=== PATIENT | male | born 1995 | race Caucasian/White ===

== ENCOUNTER 2019-10-13 23:56 | Emergency (ER) | payer OTHER ==
[2019-10-14] VITALS: BP 136/94; PULSE 72; RESP 18; TEMP 98
[2019-10-14] MEDS ORDERED: PENICILLIN VK 500MG STARTER 4 TAB BTL PO STA (00:10)
[2019-10-14] MEDS ORDERED: ACET/COD 300 MG/30 MG STARTER PACK 6 TAB BTL PO STA (00:10)
[2019-10-14] MEDS ORDERED: KETOROLAC 30 MG/ML 1 ML VIAL IM STA (00:10)
--- NOTE | 2019-10-14 00:12 | ED ---
General Adult HPI - General Chief complaint: Dental/Oral Stated complaint: Dental Pain Time Seen by Provider: 10/14/19 00:05 Source: patient Mode of arrival: ambulatory Limitations: no limitations - History of Present Illness Initial comments: 24-year-old male patient presents to the emergency department today for evaluation of left upper dental pain. Patient states the pain has been present for the last couple of days. States that he had a broken tooth but it never really bothered him. Denies any facial swelling, trismus, or difficulty swallowing. Denies any nausea or vomiting. Denies fever or chills. States he took Tylenol for pain which did not help. Patient does have dental insurance. Patient denies any recent rash, shortness breath, chest pain, abdominal pain, nausea, constipation, back pain, numbness, tingling, dizziness, weakness, hematuria, dysuria, urinary urgency, urinary frequency, headache, visual changes, or any other complaints. - Related Data Previous Rx's Medication Instructions Recorded Ibuprofen [Motrin] 600 mg PO Q8HR PRN #30 tab 10/14/19 Penicillin V Potassium [Pen Vee K] 500 mg PO Q6H #40 tablet 10/14/19 Allergies Allergy/AdvReac Type Severity Reaction Status Date / Time Sulfa (Sulfonamide Allergy Rash/Hives Verified 10/14/19 00:00 Antibiotics) Review of Systems ROS Statement: Those systems with pertinent positive or pertinent negative responses have been documented in the HPI. ROS Other: All systems not noted in ROS Statement are negative. Past Medical History Past Medical History: No Reported History History of Any Multi-Drug Resistant Organisms: None Reported Past Surgical History: No Surgical Hx Reported Smoking Status: Current every day smoker Past Alcohol Use History: None Reported Past Drug Use History: Marijuana General Exam Limitations: no limitations General appearance: alert, in no apparent distress, other (This is a well- developed, well-nourished adult male patient in no acute distress. Vital signs upon presentation are temperature 98.0F, pulse 72, respirations 18, blood pressure 136/94, pulse ox 100% on room air.) Eye exam: Present: normal appearance, PERRL, EOMI. Absent: scleral icterus, conjunctival injection, periorbital swelling ENT exam: Present: other (Patient has broken tooth to the left upper dentition. No surrounding erythema, no evidence for abscess.) Respiratory exam: Present: normal lung sounds bilaterally. Absent: respiratory distress, wheezes, rales, rhonchi, stridor Cardiovascular Exam: Present: regular rate, normal rhythm, normal heart sounds. Absent: systolic murmur, diastolic murmur, rubs, gallop, clicks GI/Abdominal exam: Present: soft, normal bowel sounds. Absent: distended, tenderness, guarding, rebound, rigid Neurological exam: Present: alert, oriented X3, CN II-XII intact Psychiatric exam: Present: normal affect, normal mood Skin exam: Present: warm, dry, intact, normal color. Absent: rash Course Vital Signs 10/13/19 23:57 Temperature 98.0 F Pulse Rate 72 Respiratory 18 Rate Blood Pressure 136/94 O2 Sat by Pulse 100 Oximetry Medical Decision Making - Medical Decision Making 24-year-old male patient presents to the emergency department today for evaluation of dental pain. Physical examination did reveal broken tooth, no surrounding gingival erythema, hyperplasia, evidence for abscess. There is concern for beginning infection as the tooth has been broken for quite some time without pain. We will start pen VK. He is given pain medication. We discharged pop with dentistry as soon as possible. Return parameters were discussed in detail. He verbalizes understanding and agrees with this plan. Disposition Clinical Impression: Pain, dental Disposition: HOME SELF-CARE Condition: Good Instructions (If sedation given, give patient instructions): Toothache (ED) Additional Instructions: Complete antibiotic prescription and full. Follow-up with dentistry for recheck as soon as possible. Return to the emergency department immediately for any new, worsening, or concerning symptoms. Prescriptions: Ibuprofen [Motrin] 600 mg PO Q8HR PRN #30 tab PRN Reason: Pain Penicillin V Potassium [Pen Vee K] 500 mg PO Q6H #40 tablet Is patient prescribed a controlled substance at d/c from ED?: No Referrals: None,Stated [Primary Care Provider] - 1-2 days Time of Disposition: 00:12
== END 2019-10-14 00:42 | disposition home or self-care (01) ==
LOC: EC 23:56
DX: S02.5XXA Fracture of tooth (traumatic), initial encounter for closed fracture (principal); F17.200 Nicotine dependence, unspecified, uncomplicated; Z88.2 Allergy status to sulfonamides; X58.XXXA Exposure to other specified factors, initial encounter
CPT/HCPCS: 99282; 96372; J1885

== ENCOUNTER 2019-10-15 01:43 | Emergency (ER) | payer OTHER ==
[2019-10-15] MEDS ORDERED: ONDANSETRON 4 MG/2 ML VIAL IVP STA ×2 (01:57→04:12)
[2019-10-15] MEDS ORDERED: SODIUM CHLORIDE 0.9% 1,000 ML IV STA (01:57)
--- NOTE | 2019-10-15 02:03 | ED ---
General Adult HPI - General Chief complaint: Nausea/Vomiting/Diarrhea Stated complaint: Vomiting Time Seen by Provider: 10/15/19 01:51 Source: patient Mode of arrival: ambulatory Limitations: no limitations - History of Present Illness Initial comments: Patient is a 24-year-old male presenting to the emergency department with a chief complaint of nausea or vomiting. Patient reports she developed sudden onset of nausea or vomiting 1.5 hours prior to ED arrival. Patient reports is also developed right upper quadrant abdominal pain that radiates to the left upper quadrant. Patient denies any diarrhea or constipation. Patient denies anyfevers or chills. Patient reports the pain is not related to by mouth intake. Patient denies any night sweats or chills. Patient reports the pain is sharp in nature - Related Data Previous Rx's Medication Instructions Recorded Ibuprofen [Motrin] 600 mg PO Q8HR PRN #30 tab 10/14/19 Penicillin V Potassium [Pen Vee K] 500 mg PO Q6H #40 tablet 10/14/19 Ondansetron Odt [Zofran Odt] 4 mg PO Q8HR PRN #10 tab 10/15/19 Allergies Allergy/AdvReac Type Severity Reaction Status Date / Time Sulfa (Sulfonamide Allergy Rash/Hives Verified 10/15/19 01:49 Antibiotics) Review of Systems ROS Statement: Those systems with pertinent positive or pertinent negative responses have been documented in the HPI. ROS Other: All systems not noted in ROS Statement are negative. Past Medical History Past Medical History: No Reported History History of Any Multi-Drug Resistant Organisms: None Reported Past Surgical History: No Surgical Hx Reported Past Psychological History: Depression Smoking Status: Current every day smoker Past Alcohol Use History: Occasional Past Drug Use History: Marijuana General Exam Limitations: no limitations General appearance: alert, in no apparent distress Head exam: Present: atraumatic, normocephalic, normal inspection Eye exam: Present: normal appearance Pupils: Present: normal accommodation ENT exam: Present: normal exam, normal oropharynx, mucous membranes moist, TM's normal bilaterally, normal external ear exam Neck exam: Present: normal inspection, full ROM Respiratory exam: Present: normal lung sounds bilaterally Cardiovascular Exam: Present: regular rate, normal rhythm, normal heart sounds GI/Abdominal exam: Present: soft, tenderness (Right upper quadrant. Positive Claudio sign. Negative McBurney point tenders, negative Rovsing, negative obturator, negative psoas), normal bowel sounds. Absent: distended, guarding, rebound, rigid, bruit, pulsatile mass, hernia Extremities exam: Present: normal inspection, full ROM Back exam: Present: normal inspection, full ROM Neurological exam: Present: alert, oriented X3 Psychiatric exam: Present: normal affect, normal mood Skin exam: Present: warm, dry, intact, normal color Course Vital Signs 10/15/19 10/15/19 01:47 02:45 Temperature 97.8 F 98 F Pulse Rate 89 80 Respiratory 20 18 Rate Blood Pressure 144/90 136/74 O2 Sat by Pulse 98 98 Oximetry Medical Decision Making - Medical Decision Making Patient is a 24-year-old male presenting to emergency Department with a chief complaint of nausea or vomiting. Patient was given fluids, antiemetics, Protonix and Bentyl. Physical examination is indicative of right upper quadrant tenderness with positive Claudio sign. On reevaluation patient reports improvement in his symptoms.right upper quadrant ultrasound is indicative of gallbladder distention but otherwise no signs of stones, gallbladder thickening or surrounding fluid. CBC and CMP are unremarkable. Patient does not appear jaundiced. Patient advised to follow with primary care. Strict return parameters were thoroughly discussed with patient was understanding and agreeable. Patient was to take prescribed medication as directed. Patient advised to drink fluids. Case discussed with physician. - Lab Data Result diagrams: 10/15/19 02:27 10/15/19 02:27 Lab Results 10/15/19 10/15/19 Range/Units 02:27 02:27 WBC 9.3 (3.8-10.6) k/uL RBC 4.59 (4.30-5.90) m/uL Hgb 15.0 (13.0-17.5) gm/dL Hct 43.8 (39.0-53.0) % MCV 95.4 (80.0-100.0) fL MCH 32.6 (25.0-35.0) pg MCHC 34.2 (31.0-37.0) g/dL RDW 12.4 (11.5-15.5) % Plt Count 234 (150-450) k/uL Neutrophils % 60 % Lymphocytes % 30 % Monocytes % 6 % Eosinophils % 1 % Basophils % 1 % Neutrophils # 5.5 (1.3-7.7) k/uL Lymphocytes # 2.8 (1.0-4.8) k/uL Monocytes # 0.6 (0-1.0) k/uL Eosinophils # 0.1 (0-0.7) k/uL Basophils # 0.1 (0-0.2) k/uL Sodium 139 (137-145) mmol/L Potassium 3.9 (3.5-5.1) mmol/L Chloride 110 H (98-107) mmol/L Carbon Dioxide 22 (22-30) mmol/L Anion Gap 7 mmol/L BUN 12 (9-20) mg/dL Creatinine 0.77 (0.66-1.25) mg/dL Est GFR (CKD-EPI)AfAm >90 (>60 ml/min/1.73 sqM) Est GFR (CKD-EPI)NonAf >90 (>60 ml/min/1.73 sqM) Glucose 110 H (74-99) mg/dL Calcium 9.5 (8.4-10.2) mg/dL Total Bilirubin 0.6 (0.2-1.3) mg/dL AST 25 (17-59) U/L ALT 21 (21-72) U/L Alkaline Phosphatase 62 (38-126) U/L Total Protein 7.3 (6.3-8.2) g/dL Albumin 4.3 (3.5-5.0) g/dL Amylase 46 (30-110) U/L Lipase 222 (23-300) U/L Disposition Clinical Impression: Nausea & vomiting, Right upper quadrant abdominal pain Disposition: HOME SELF-CARE Condition: Stable Instructions (If sedation given, give patient instructions): Acute Diarrhea (ED) Additional Instructions: Please follow up with primary care. Please return to emergency department if symptoms worsen. Please take prescribed medication as directed. Avoid eating fatty foods. Prescriptions: Ondansetron Odt [Zofran Odt] 4 mg PO Q8HR PRN #10 tab PRN Reason: Nausea Is patient prescribed a controlled substance at d/c from ED?: No Referrals: None,Stated [Primary Care Provider] - 1-2 days Time of Disposition: 04:00
--- NOTE | 2019-10-15 02:34 | US ---
EXAMINATION TYPE: US abdomen limited DATE OF EXAM: 10/15/2019 COMPARISON: NONE CLINICAL HISTORY: RUQ tenderness. RUQ pain x 1 day. Vomiting. EXAM MEASUREMENTS: Liver Length: 15.1 cm Gallbladder Wall: 0.24 cm CBD: 0.59 cm Right Kidney: 11.3 x 5.5 x 4.5 cm Patient gassy Pancreas: Appears wnl, slightly limited due to gas Liver: Appears to be wnl Gallbladder: Appears distended. Measures 10.37 cm in length and 3.64 cm in width. Appears anechoic. Evidence for sonographic Claudio's sign: Patient's area of pain was while scanning over gallbladder . CBD: Measures 0.59 cm, upper limits of normal Right Kidney: No hydronephrosis or masses seen IMPRESSION: There is well distended gallbladder. No gallstones seen. No dilated ducts. No gallbladder wall thickening. There was tenderness over the gallbladder during the exam.
[2019-10-15 02:58] LABS: Basophils # (A) 0.1 k/uL (0-0.2); Basophils % (A) 1 %; Eosinophils # (A) 0.1 k/uL (0-0.7); Eosinophils % (A) 1 %; HCT 43.8 % (39.0-53.0); Lymphocytes # (A) 2.8 k/uL (1.0-4.8); Lymphocytes % (A) 30 %; MCH 32.6 pg (25.0-35.0); MCHC 34.2 g/dL (31.0-37.0); MCV 95.4 fL (80.0-100.0); Mean Platelet Volume 7.3; Monocytes # (A) 0.6 k/uL (0-1.0); Monocytes % (A) 6 %; Neutrophils # (A) 5.5 k/uL (1.3-7.7); Neutrophils % (A) 60 %; Platelet Count 234 k/uL (150-450); RBC 4.59 m/uL (4.30-5.90); RDW 12.4 % (11.5-15.5); WBC 9.3 k/uL (3.8-10.6)
[2019-10-15] MEDS ORDERED: PANTOPRAZOLE 40 MG/10 ML VIAL IVP STA (03:00)
[2019-10-15] MEDS ORDERED: DICYCLOMINE 10 MG CAP PO STA (03:00)
[2019-10-15 03:01] LABS: ALT 21 U/L (21-72); AST 25 U/L (17-59); African American GFR (CKD) >90 (>60 ml/min/1.73 sqM); Albumin 4.3 g/dL (3.5-5.0); Alkaline Phosphatase 62 U/L (38-126); Amylase 46 U/L (30-110); Anion Gap 7 mmol/L; Blood Urea Nitrogen 12 mg/dL (9-20); Calcium 9.5 mg/dL (8.4-10.2); Carbon Dioxide 22 mmol/L (22-30); Chloride 110 mmol/L (98-107); Glucose 110 mg/dL (74-99); Non-African American GFR(CKD) >90 (>60 ml/min/1.73 sqM); Potassium 3.9 mmol/L (3.5-5.1); Sodium 139 mmol/L (137-145); Total Bilirubin 0.6 mg/dL (0.2-1.3); Total Protein 7.3 g/dL (6.3-8.2)
[2019-10-15] MEDS ORDERED: ONDANSETRON 4 MG ODT STARTER PACK 2 TAB BTL PO STA (03:19)
[2019-10-15 03:33] VITALS: BP 136/74; PULSE 80; RESP 18; TEMP 98
[2019-10-15 05:59] LABS: Appearance,Urine Clear (Clear); Bacteria,Urine Rare /hpf; Bilirubin,Urine Negative (Negative); Blood,Urine Small (Negative); Color,Urine Yellow; Glucose,Urine (UA) Negative (Negative); Ketones,Urine 1+ (Negative); Leukocyte Esterase,Urine Trace (Negative); Mucus,Urine Occasional /hpf; Nitrite,Urine Negative (Negative); PH, Urine 6.5 (5.0-8.0); Protein,Urine 1+ (Negative); RBC,Urine 1 /hpf (0-5); Squamous Epithelial Cell,Urine 12 /hpf (0-4); Urobilinogen,Urine <2.0 mg/dL (<2.0)
[2019-10-15 06:03] LABS: Specific Gravity,Urine 1.047 (1.001-1.035)
== END 2019-10-15 04:28 | disposition home or self-care (01) ==
LOC: EC 01:43
DX: R10.11 Right upper quadrant pain (principal); R11.2 Nausea with vomiting, unspecified; F17.200 Nicotine dependence, unspecified, uncomplicated; Z88.2 Allergy status to sulfonamides
CPT/HCPCS: 36415; 80053; 82150; 83690; 85025; 81001; 76705; 99284; 96374; 96375; 96376; 96361; J2405; S0119; C9113

== ENCOUNTER 2020-07-25 00:15 | Emergency (ER) | payer BC, OTHER ==
[2020-07-25 00:22] VITALS: BP 136/81; PULSE 98; RESP 18; TEMP 98.8
[2020-07-25] MEDS ORDERED: HYDROcodone/APAP 7.5-325MG 1 EACH TAB PO ONE (00:31)
[2020-07-25] MEDS ORDERED: KETOROLAC 15 MG/ML 1 ML VIAL IM STA (00:31)
[2020-07-25] MEDS ORDERED: BUPIVACAINE (PF) 0.5% 30 ML VIAL SQ STA (00:31)
--- NOTE | 2020-07-25 00:44 | ED ---
General Adult HPI - General Chief complaint: Dental/Oral Stated complaint: Tooth pain Time Seen by Provider: 07/25/20 00:28 Source: patient Mode of arrival: ambulatory Limitations: no limitations - History of Present Illness Initial comments: 25-year-old male patient presents to the emergency department today for evaluation of right upper dental pain. Patient states he's been having pain to this area for quite some time though it got significantly worse while at work this evening. States pain worsened around 10 PM. Patient states he does have a broken tooth in the area. States he does have a dentist appointment on Monday but he is unable to take the pain. He denies any trismus or difficulty swallowing. Denies nausea or vomiting. Denies any fever or chills. Denies any facial swelling. - Related Data Previous Rx's Medication Instructions Recorded Ibuprofen [Motrin] 600 mg PO Q8HR PRN #30 tab 10/14/19 Penicillin V Potassium [Pen Vee K] 500 mg PO Q6H #40 tablet 10/14/19 Ondansetron Odt [Zofran Odt] 4 mg PO Q8HR PRN #10 tab 10/15/19 Penicillin V Potassium [Pen Vee K] 500 mg PO Q6H #40 tablet 07/25/20 Allergies Allergy/AdvReac Type Severity Reaction Status Date / Time Sulfa (Sulfonamide Allergy Rash/Hives Verified 07/25/20 00:22 Antibiotics) Review of Systems ROS Statement: Those systems with pertinent positive or pertinent negative responses have been documented in the HPI. ROS Other: All systems not noted in ROS Statement are negative. Past Medical History Past Medical History: No Reported History History of Any Multi-Drug Resistant Organisms: None Reported Past Surgical History: No Surgical Hx Reported Past Psychological History: Depression Smoking Status: Current every day smoker Past Alcohol Use History: Occasional Past Drug Use History: Marijuana General Exam Limitations: no limitations General appearance: alert, in no apparent distress, other (This is a well- developed, well-nourished adult male patient in no acute distress. Vital signs upon presentation are temperature 98.8F, pulse 98, respirations 18, blood pressure 136/81, pulse ox 95% on room air.) ENT exam: Present: normal oropharynx, mucous membranes moist, other (Patient has very poor dentition, multiple dental caries, tooth #1 is fractured down to the pulp with exposed nerve. There is mild surrounding erythema. No evidence of drainable abscess to) Neck exam: Present: normal inspection. Absent: tenderness, meningismus, lymphadenopathy Respiratory exam: Present: normal lung sounds bilaterally. Absent: respiratory distress, wheezes, rales, rhonchi, stridor Cardiovascular Exam: Present: regular rate, normal rhythm, normal heart sounds. Absent: systolic murmur, diastolic murmur, rubs, gallop, clicks Neurological exam: Present: alert, oriented X3, CN II-XII intact Psychiatric exam: Present: normal affect, normal mood Skin exam: Present: warm, dry, intact, normal color. Absent: rash Course Vital Signs 07/25/20 00:20 Temperature 98.8 F Pulse Rate 98 Respiratory 18 Rate Blood Pressure 136/81 O2 Sat by Pulse 95 Oximetry Procedures - Nerve Block Consent Obtained: verbal consent Local Anesthetic Used: Marcaine 0.5% Amount of anesthesia used: 3 Side: right Intraoral Nerve Block: superior alveolar Procedure Successful: Yes Complications: none Patient Tolerated Procedure: well, no complications Medical Decision Making - Medical Decision Making 25-year-old male patient presented to the emergency department today for evaluation of right upper dental pain. Physical examination did reveal very poor dentition with multiple dental caries. Tooth #1 was fractured with Exposure. Patient did have mild surrounding erythema with no evidence for drainable abscess. Patient is afebrile. I did perform superior alveolar nerve block which did improve the patient's symptoms. He'll be discharged with Pen- Vee K. He does have a dentist appointment on Monday. He is given prescription for ibuprofen for pain control. Return parameters were discussed in detail. He verbalizes understanding and agrees with this plan. Disposition Clinical Impression: Pain, dental Disposition: HOME SELF-CARE Condition: Good Instructions (If sedation given, give patient instructions): Toothache (ED) Additional Instructions: Complete antibiotic prescription in full. Follow up with dentistry on Monday as you have planned. Take Tylenol Motrin alternating every 6 hours for pain control. Return to the emergency department immediately for any new, worsening, or concerning symptoms. Prescriptions: Penicillin V Potassium [Pen Vee K] 500 mg PO Q6H #40 tablet Is patient prescribed a controlled substance at d/c from ED?: No Referrals: None,Stated [Primary Care Provider] - 1-2 days Time of Disposition: 01:07
[2020-07-25] MEDS ORDERED: PENICILLIN VK 500MG STARTER 4 TAB BTL PO STA (01:07)
[2020-07-25] MEDS ORDERED: ACET/COD 300 MG/30 MG STARTER PACK 6 TAB BTL PO STA (01:07)
== END 2020-07-25 01:38 | disposition home or self-care (01) ==
LOC: EC 00:15
DX: K02.9 Dental caries, unspecified (principal); K00.7 Teething syndrome; K03.81 Cracked tooth; F17.200 Nicotine dependence, unspecified, uncomplicated; Z88.2 Allergy status to sulfonamides
CPT/HCPCS: 96372; 99283; 64400; J1885

== ENCOUNTER 2021-01-14 09:46 | Emergency (ER) | payer BC, OTHER ==
[2021-01-14 09:57] VITALS: BP 134/108; PULSE 102; RESP 18; TEMP 97.8
[2021-01-14] MEDS ORDERED: ceFAZolin 1,000 MG VIAL (IM USE) IM STA (10:09)
[2021-01-14] MEDS ORDERED: LIDOCAINE 1% INJ 10MG/ML (20 ML MDV) SQ ONE (10:10)
[2021-01-14] MEDS ORDERED: DIPH,PERTUS(ACELL)TETVAC-LF 0.5 ML VIAL IM ONE (10:10)
--- NOTE | 2021-01-14 10:28 | XR ---
EXAMINATION TYPE: XR hand complete RT DATE OF EXAM: 01/14/2021 COMPARISON: NONE HISTORY: Pain TECHNIQUE: Three views are submitted. FINDINGS: The osseous structures are intact. The joint spaces are preserved and there is no acute fracture or dislocation. IMPRESSION: 1. No definite acute fracture or dislocation if symptoms persist, follow-up study in 7 to 10 days wo uld be suggested
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
[2021-01-14] MEDS ORDERED: BACITRACIN OINT 1 EACH PACKET TOPICAL ONE (11:58)
== END 2021-01-14 13:20 | disposition home or self-care (01) ==
LOC: EC 09:46
DX: S61.411A Laceration without foreign body of right hand, initial encounter (principal); F32.9 Major depressive disorder, single episode, unspecified; R45.4 Irritability and anger; Z23 Encounter for immunization; Z88.2 Allergy status to sulfonamides; F17.290 Nicotine dependence, other tobacco product, uncomplicated; W25.XXXA Contact with sharp glass, initial encounter; Y93.89 Activity, other specified
CPT/HCPCS: 82075; 90471; 90715; 96372; 99284